=== PATIENT | female | born 1995 | race Caucasian/White ===

== ENCOUNTER 2019-01-27 07:47 | Outpatient (CLI) | payer OTHER ==
--- NOTE | 2019-01-27 14:07 | NM ---
GASTRIC EMPTYING STUDY: 01/27/2019 PROVIDED CLINICAL HISTORY: Nausea with vomiting. TECHNIQUE: Technetium 99m, labeled sulfur colloid, 2 millicuries, was given orally, in eggs, with anterior plana r imaging performed over the abdomen for three hours. FINDINGS: There is qualitatively normal distribution of radiotracer throughout the stomach and abdomen. The ca lculated gastric emptying half-time is 54 minutes, which is within normal limits. IMPRESSION: Normal gastric emptying half-time. POS: OFF
== END 2019-01-27 07:48 | disposition home or self-care (01) ==
LOC: NM 07:47
PROVIDERS: ATTEND Internal Medicine
DX: B82.9 Intestinal parasitism, unspecified (principal); R10.32 Left lower quadrant pain; K59.00 Constipation, unspecified; R11.2 Nausea with vomiting, unspecified
CPT/HCPCS: 78264; A9541

== ENCOUNTER 2019-08-30 09:27 | Outpatient (CLI) | payer OTHER ==
--- NOTE | 2019-08-30 10:13 | RAD ---
EXAM: XR Abdomen 1 View/KUB DATE: 08/30/2019 12:00 AM INDICATION: Sitzmarks markers study COMPARISON: None. FINDING: Day one of the Sitzmarks study. All of the Sitzmarks markers are situated within the region of the gastric body. Bowel gas pattern is unobstructed. Lung bases are clear. No suspicious calcifications are evident. No acute osseous abnormality is demonstrated. IMPRESSION:Day 1 of Sitzmarks markers study. All of the Sitzmarks markers are situated within the reg ion of the gastric body.
== END 2019-08-30 09:28 | disposition home or self-care (01) ==
LOC: BICRAD 09:27
DX: K58.9 Irritable bowel syndrome, unspecified (principal); R10.13 Epigastric pain; R10.84 Generalized abdominal pain
CPT/HCPCS: 74018

== ENCOUNTER 2019-09-03 10:04 | Outpatient (CLI) | payer OTHER ==
--- NOTE | 2019-09-03 10:31 | RAD ---
XR Abdomen 1 View/KUB HISTORY: Sitz marker study. Abdominal pain COMPARISON: 08/30/2019 FINDINGS: 2 residual Sitz markers are seen in the region of the rectum. The bowel gas pattern is unre markable.
== END 2019-09-03 10:05 | disposition home or self-care (01) ==
LOC: BICRAD 10:04
DX: K58.9 Irritable bowel syndrome, unspecified (principal); R10.13 Epigastric pain; R10.84 Generalized abdominal pain
CPT/HCPCS: 74018